=== PATIENT | female | born 2005 | race Caucasian/White ===

== ENCOUNTER 2024-12-02 14:15 | Outpatient (RCR) | payer OTHER, SELFPAY | END 2025-04-01 23:59 | disposition home or self-care (01) | PROVIDERS: Visit Provider Orthopaedic Surgery Sports Medicine | DX: M25.561 Pain in right knee (principal); R26.89 Other abnormalities of gait and mobility; M62.81 Muscle weakness (generalized); Z51.89 Encounter for other specified aftercare ==

== ENCOUNTER 2025-01-20 15:00 | Outpatient (RCR) | payer OTHER, SELFPAY | END 2025-01-27 13:35 | disposition home or self-care (01) | PROVIDERS: Visit Provider Orthopaedic Surgery Sports Medicine | DX: S83.511A Sprain of anterior cruciate ligament of right knee, initial encounter (principal); M25.561 Pain in right knee; Z74.09 Other reduced mobility; M62.81 Muscle weakness (generalized); R26.9 Unspecified abnormalities of gait and mobility; Z51.89 Encounter for other specified aftercare | CPT/HCPCS: 97110; 97112; 97116; 97140; 97161; 97164 ==